=== PATIENT | male | born 1965 | race African-American/Black ===

== ENCOUNTER 2017-05-06 14:43 | Emergency (ER) | payer MEDICARE, MEDICAID ==
[~2017-05-06] VITALS: Ht 185.4 cm; Wt 98.9 kg
[2017-05-06 15:07] VITALS: BP 109/71
[2017-05-06] MEDS ORDERED: Sodium Chloride 500ML 500 ML IV ONE (15:32)
[2017-05-06] MEDS ORDERED: Ciprofloxacin 500mg tab ORAL ONE (15:45)
[2017-05-06] MEDS ORDERED: Ketorolac 30mg Inj IV ONE (15:45)
[2017-05-06] MEDS ORDERED: PROMETHAZINE-C118 M1 ORAL (16:12)
[2017-05-06] MEDS ORDERED: IBUPROFEN600 MG ORAL (16:12)
[2017-05-06] MEDS ORDERED: PROAIR HFA8.5 GM INH (16:12)
[2017-05-06 16:30] VITALS: BP 116/78
[2017-05-06 16:35] VITALS: BP 116/78
--- NOTE | 2017-05-07 12:25 | Emergency Room Report ---
History of Present Illness General Chief Complaint: General Complaint Source: Patient Present Illness HPI The patient is a 52-year-old male presenting for fevers, myalgia, cough, and headache for the past week. He is concerned as his significant other was diagnosed with meningitis during this past week as well. He states that his symptoms began before her. he denies any known medical history. He denies other symptoms including neck pain or stiffness, rash, dizziness, CP, SOB They are unsure if the significant other had viral or bacterial meningitis Allergies: Coded Allergies: No Known Allergies (Unverified , 05/06/17) Patient History Past Medical History: see triage record Pertinent Family History: none Reviewed Nursing Documentation: PMH: Agreed, PSxH: Agreed Nursing Documentation-PMH History Of Psychiatric Problem: Yes - PTSD; Bipolar Review of Systems All Other Systems: negative except mentioned in HPI Physical Exam Vital Signs Date Time Temp Pulse Resp B/P (MAP) Pulse Ox O2 Delivery O2 Flow Rate FiO2 05/06/17 15:07 100.9 76 18 109/71 97 Room Air Sp02 EP Interpretation: reviewed, normal General Appearance: no apparent distress, alert, GCS 15, non-toxic Head: normocephalic, atraumatic Eyes: bilateral eye normal inspection, bilateral eye PERRL ENT: hearing grossly normal, no angioedema, normal voice, uvula midline, nasal congestion, pharyngeal erythema Neck: normal inspection, full range of motion, supple, no meningismus, supple/ symm/no masses Respiratory: chest non-tender, lungs clear, normal breath sounds, speaking full sentences, wheezing - bilat Cardiovascular #1: regular rate, rhythm, no edema Musculoskeletal: back normal, gait/station normal, normal range of motion, non- tender Neurologic: alert, oriented x3, responsive, motor strength/tone normal, sensory intact, speech normal Psychiatric: judgement/insight normal, memory normal, mood/affect normal, no suicidal/homicidal ideation Skin: normal color, no rash, warm/dry, well hydrated Medical Decision Making PA Attestation Dr. Mehta is my supervising physician. Patient management was discussed with my supervising physician Diagnostic Impression: Primary Impression: Bronchitis Additional Impression: Exposure to meningitis ER Course The patient is a 52-year-old male presenting for cough, fevers, and myalgia Differential diagnosis include but not limited to meningitis, pharyngitis, sinusitis, AOM, bronchitis, PNA PE: Febrile. No tachypnea. No apparent distress. No TTP over maxillary or frontal sinuses. Neck is soft and supple. Full active range of motion intact. No Kernig or Brudzinski sign Lungs: diffuse wheezing. No accessory muscle use. No resp distress Heart: RRR, no abnormal heart sounds Ears: external auditory canal clear. Non erythematous. Bilat TM intact. Cone of light present bilat. No bulging of TM. No serous fluid seen. no nasal D/C No cervical lymphad No tonsillar exudate. Uvula midline.Oropharynx is erythematous I discussed the case with Dr. Mehta. Patient is given 500 mg of ciprofloxacin for exposure to meningitis The patient will be discharged home with a prescription for albuterol and pain medication. ER precautions given Last Vital Signs Date Time Temp Pulse Resp B/P (MAP) Pulse Ox O2 Delivery O2 Flow Rate FiO2 05/06/17 16:35 99.3 67 19 116/78 96 Room Air Status: improved Disposition: HOME, SELF-CARE Condition: Improved Scripts Albuterol Sulfate* (PROAIR HFA*) 8.5 Gm Hfa.aer.ad 2 PUFFS INH Q6H, #8.5 GM 0 Refills Prov: WILBUR POLANCO P.A. 05/06/17 Codeine/Promethazine Hcl* (PROMETHAZINE-CODEINE SYRUP*) 118 Ml Syrup 5 ML ORAL Q6H Y for For Cough, #118 ML 0 Refills Prov: TERZIANWILBUR P.A. 05/06/17 Ibuprofen* (MOTRIN*) 600 Mg Tablet 600 MG ORAL Q8H Y for For Pain, #30 TAB 0 Refills Prov: TERZIANWILBUR P.A. 05/06/17 Patient Instructions: Acute Bronchitis Additional Instructions: I discussed my findings with the patient. All questions and concerns have been answered. Treatment and medication compliance have been addressed. Return to ED if symptoms worsen, new symptoms arise, or if needed for any reason. Patient verbalized understanding of discharge instructions. Please followup with your primary doctor as soon as possible for further treatment and evaluation. Return to the emergency department if you experience any new symptoms including neck pain or stiffness, headache, continued fever, confusion, or any other symptoms WILBUR POLANCO May 07, 2017 12:25
== END 2017-05-06 16:35 | disposition home or self-care (01) ==
LOC: EMR 15:33
DX: J40 Bronchitis, not specified as acute or chronic (principal); Z20.89 Contact with and (suspected) exposure to other communicable diseases; F43.10 Post-traumatic stress disorder, unspecified; F31.9 Bipolar disorder, unspecified
CPT/HCPCS: 96361; 96374; 99284

== ENCOUNTER 2019-03-18 21:41 | Emergency (ER) | payer MEDICARE, MEDICAID ==
[~2019-03-18] VITALS: Ht 185.4 cm; Wt 104.3 kg
[~2019-03-18 21:41] MED LIST: IBUPROFEN600 MG ORAL; PROAIR HFA8.5 GM INH; PROMETHAZINE-C118 M1 ORAL
[2019-03-18 21:50] VITALS: BP 144/84
--- NOTE | 2019-03-18 21:55 | Emergency Room Report ---
History of Present Illness General Chief Complaint: Alcohol Intoxication Source: EMS Present Illness HPI 54-year-old male, currently intoxicated, patient reports he was drinking, he denies any trauma, history is limited due to his current intoxication, patient came in prior to arrival intoxicated, aggravated with alcohol alleviated by not having alcohol severity is mild, constant Allergies: Coded Allergies: UNABLE TO ASSESS (Unverified , 03/18/19) Patient History Limited by: medical condition - Currently intoxicated Past Medical History: see triage record Social History: Reports: alcohol use Reviewed Nursing Documentation: PMH: Agreed; PSxH: Agreed Nursing Documentation-PMH Past Medical History: Deferred Review of Systems All Other Systems: limited - intoxicated Physical Exam Vital Signs Date Time Temp Pulse Resp B/P (MAP) Pulse Ox O2 Delivery O2 Flow Rate FiO2 03/18/19 21:36 97.9 90 16 144/84 (104) 97 Room Air Sp02 EP Interpretation: reviewed, normal General Appearance: well appearing, no apparent distress, alert Head: normocephalic, atraumatic Eyes: bilateral eye PERRL, bilateral eye EOMI ENT: uvula midline, moist mucus membranes Neck: supple, thyroid normal, supple/symm/no masses Respiratory: lungs clear, no respiratory distress, no retraction, no accessory muscle use Cardiovascular #1: normal peripheral pulses, regular rate, rhythm, no edema, no gallop, no murmur Gastrointestinal: non tender, soft, no guarding, no rebound Musculoskeletal: normal inspection Neurologic: alert, oriented x3 Psychiatric: mood/affect normal Skin: no rash, warm/dry Medical Decision Making Diagnostic Impression: Primary Impression: Acute alcoholic intoxication Qualified Codes: F10.920 - Alcohol use, unspecified with intoxication, uncomplicated ER Course Patient with acute alcohol intoxication, will wait until he yoana Reevaluation 12:23 AM, patient is back to baseline, patient with a stable gait, utilizing the bathroom disposition home with return precautions Last Vital Signs Date Time Temp Pulse Resp B/P (MAP) Pulse Ox O2 Delivery O2 Flow Rate FiO2 03/18/19 21:36 97.9 90 16 144/84 (104) 97 Room Air Disposition: HOME, SELF-CARE Condition: Stable Referrals: [facility] Patient Instructions: Alcohol Intoxication, [id number] Additional Instructions: The patient was provided with discharge instructions, notified to follow-up with a primary care doctor and or specialist in the next 24-48 hours, and to return to the ED if they have worsening of their symptoms. Please note that this report is being documented using [employer] technology. This can lead to erroneous entry secondary to incorrect interpretation by the dictating instrument. Keven Noriega MD Mar 18, 2019 21:55
--- NOTE | 2019-03-18 22:23 | NUR ---
ED Nurse Note: Patient was BIBA from street due to ETOH. Patient presented AAO x0, VSS at this time, BS 101, skin is dry warm to touch.
[2019-03-19 00:45] VITALS: BP 144/84
--- NOTE | 2019-03-19 01:33 | NUR ---
ER DISCHARGE NOTE: Patient is cleared to be discharged per ERMD, pt is aox4, on room air, with stable vital signs. pt was given dc and prescription instructions, pt was able to verbalize understanding, pt id band and iv site removed without complications. pt is able to ambulate with steady gait. pt took all belongings.
== END 2019-03-19 00:45 | disposition home or self-care (01) ==
LOC: EDBD 21:41 → EMR 21:51 → MERGE 21:51 → EMR 03-19 00:45
DX: F10.129 Alcohol abuse with intoxication, unspecified (principal)
CPT/HCPCS: 99282

== ENCOUNTER 2019-03-21 10:23 | Emergency (ER) | payer MEDICARE, MEDICAID ==
[~2019-03-21] VITALS: Ht 185.4 cm; Wt 104.3 kg
[2019-03-21 10:42] VITALS: BP 98/73
--- NOTE | 2019-03-21 11:01 | Emergency Room Report ---
History of Present Illness General Chief Complaint: Back Pain-No Injury Source: Patient, Medical Record Present Illness HPI Patient is a 54-year-old male presents after increased low back pain. Patient reports having increased pain since last night. He reports having prior hip history of chronic back discomfort due to 3 degenerative disks in his back. He denies any bowel or bladder dysfunction. He reports not being able to have a bowel movement for the past 3 days. He reports taking Tylenol No. 4 regularly. He states he is followed by primary care physician and has had previous imaging studies in the past. He denies any fever or vomiting. He reports having normal urination. Allergies: Coded Allergies: No Known Allergies (Unverified , 05/06/17) Patient History Past Medical History: see triage record Social History: Reports: smoking Reviewed Nursing Documentation: PMH: Agreed; PSxH: Agreed Nursing Documentation-PMH Hx Asthma: Yes History Of Psychiatric Problem: Yes - PTSD, schizophrenia, Bipolar Review of Systems All Other Systems: negative except mentioned in HPI Physical Exam Vital Signs Date Time Temp Pulse Resp B/P (MAP) Pulse Ox O2 Delivery O2 Flow Rate FiO2 03/21/19 10:42 98.4 95 18 98/73 (81) 100 Room Air Sp02 EP Interpretation: reviewed, normal General Appearance: normal inspection, well appearing, alert, GCS 15, Chronically Ill Head: atraumatic ENT: normal ENT inspection, hearing grossly normal, normal voice Neck: normal inspection, full range of motion, supple, no bony tend Respiratory: normal inspection, no respiratory distress, no retraction, wheezing Cardiovascular #1: regular rate, rhythm, no edema Gastrointestinal: normal inspection, normal bowel sounds, non tender, soft, no guarding, no hernia Genitourinary: no CVA tenderness Musculoskeletal: normal inspection, back normal, normal range of motion Neurologic: normal inspection, alert, oriented x3, responsive, primer charger III-XII nml as tested, speech normal Psychiatric: normal inspection, judgement/insight normal, mood/affect normal Medical Decision Making Diagnostic Impression: Primary Impression: Bronchitis Additional Impression: Constipation due to opioid therapy ER Course Patient presented for low back pain. Differential diagnosis included but was not limited to herniated disc, cauda equina syndrome, abdominal aortic aneurysm , perforated ulcer, spinal epidural abscess, spinal stenosis, lumbar fracture, metastatic lesion, pyelonephritis. He was noted to have a benign exam and history. Does not show any signs of incontinence or urinary retention. KUB showed large amount of retained stool. See radiology report for full details. He was noted to have some constipation which is likely due to opiate therapy. Patient was given an enema. Patient was given prescription for symptomatic treatment. Patient was advised to recheck with primary care physician in 1-2 days. Patient to return for any worsening, pain, fever, incontinence or other concerns. Last Vital Signs Date Time Temp Pulse Resp B/P (MAP) Pulse Ox O2 Delivery O2 Flow Rate FiO2 03/21/19 10:42 98.4 95 18 98/73 (81) 100 Room Air Status: improved Disposition: HOME, SELF-CARE Condition: Stable Scripts Albuterol Sulfate* (ALBUTEROL SULFATE MDI*) 8.5 Gm Hfa.aer.ad 2 PUFF INH Q4H PRN for cough/wheezing, #1 EA 0 Refills Prov: Gil Castaneda MD 03/21/19 Gabapentin* (GABAPENTIN*) 300 Mg Capsule 300 MG ORAL THREE TIMES A DAY, #30 CAP 0 Refills Prov: Gil Castaneda MD 03/21/19 Lactulose (LACTULOSE*) 20 Gm/30 Ml Solution 15 ML ORAL THREE TIMES A DAY, #60 ML 0 Refills Prov: Gil Castaneda MD 03/21/19 Gil Castaneda MD Mar 21, 2019 11:01
[2019-03-21] MEDS ORDERED: Albuterol/Ipratropium 3ml neb HHN ONE (11:15)
[2019-03-21] MEDS ORDERED: Ketorolac 60mg Inj IM ONE (11:15)
--- NOTE | 2019-03-21 11:30 | NUR ---
ED Nurse Note: CALLED RT FOR BREATHING TREATMENT.
[2019-03-21] MEDS ORDERED: Fleet's Enema 133ml RECTAL ONE (12:00)
[2019-03-21] MEDS ORDERED: LACTULOSE20 GM/301 ORAL (12:05)
[2019-03-21] MEDS ORDERED: GABAPENTIN300 MG ORAL (12:07)
--- NOTE | 2019-03-21 12:16 | Diagnostic Imaging Report ---
EXAM: XR Abdomen, 1 Views CLINICAL HISTORY: PAIN TECHNIQUE: Frontal view of the abdomen pelvis . COMPARISON: No relevant prior studies available. FINDINGS: Gastrointestinal tract: Moderate stool in rectum. No bowel obstruction. Bones joints: Unremarkable. IMPRESSION: Moderate stool in rectum. No bowel obstruction.
[2019-03-21] MEDS ORDERED: ALBUTEROL SULF8.5 GM INH (12:18)
[2019-03-21 12:32] VITALS: BP 107/84
--- NOTE | 2019-03-21 12:32 | NUR ---
ER DISCHARGE NOTE: Pt was seen d/t lower back pain. Patient is cleared to be discharged per ERMD, pt is aox4, on room air, with stable vital signs. pt was given dc and prescription instructions, pt was able to verbalize understanding, pt id band removed without complications. pt is able to ambulate with steady gait. pt took all belongings and left with his mom.
== END 2019-03-21 12:32 | disposition home or self-care (01) ==
LOC: EMR 12:16
DX: J20.9 Acute bronchitis, unspecified (principal); K59.03 Drug induced constipation; T40.2X5A Adverse effect of other opioids, initial encounter; Y92.9 Unspecified place or not applicable; F17.200 Nicotine dependence, unspecified, uncomplicated; F20.9 Schizophrenia, unspecified; F31.9 Bipolar disorder, unspecified
CPT/HCPCS: 74018; 94640; 94664; 96372; 99284; J7620